=== PATIENT | female | born 1985 ===

== ENCOUNTER 2016-12-09 17:07 | Emergency (ER) | payer OTHER ==
[2016-12-09 17:18] VITALS: BP 112/69
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
--- NOTE | 2016-12-09 18:10 | RAD ---
INDICATION: Neck injury COMPARISON: None TECHNIQUE: A single lateral view the cervical spine submitted FINDINGS: No focal bony findings are seen on the single view. Cervical alignment is normal. The atlantodental interval is normal. The prevertebral soft tissues are normal. IMPRESSION: NORMAL SINGLE VIEW CERVICAL SPINE. SUGGEST COMPLETION OF THE SERIES.
--- NOTE | 2016-12-09 18:30 | RAD ---
INDICATION: Bilateral shoulder pain COMPARISON: None TECHNIQUE: Routine frontal, Y and axial views of each shoulder were obtained. FINDINGS: The bilaterally shoulder examination shows that the bony structures, joint spaces, and soft tissues are normal for age. IMPRESSION: NORMAL BILATERAL EXAMINATION
--- NOTE | 2016-12-09 18:35 | RAD ---
INDICATION: Neck injury COMPARISON: Single lateral view same date TECHNIQUE: Routine five-view imaging was performed FINDINGS: Bones: There are no acute bony findings. There are no significant osteoarthritic findings. Craniocervical junction: The odontoid and atlantodental interval are normal. Alignment: Normal Disc spaces: The disc spaces are well-maintained Soft tissues: The prevertebral soft tissues are normal. IMPRESSION: NEGATIVE EXAMINATION.
== END 2016-12-09 19:01 | disposition home or self-care (01) ==
LOC: UCEAST 17:07
DX: S16.1XXA Strain of muscle, fascia and tendon at neck level, initial encounter (principal); M62.838 Other muscle spasm; V49.69XA Unspecified car occupant injured in collision with other motor vehicles in traffic accident, initial encounter; Y93.9 Activity, unspecified; Y92.9 Unspecified place or not applicable; Y99.9 Unspecified external cause status
CPT/HCPCS: 72020; 72050; 84702; 99202; G0463